=== PATIENT | male | born 1975 | race African-American/Black ===

== ENCOUNTER 2021-08-13 22:18 | Emergency (ER) | payer MEDICARE, MEDICAID ==
[~2021-08-13] VITALS: Ht 185.4 cm; Wt 90.0 kg
[2021-08-13 22:28] VITALS: BP 133/71
[2021-08-13] MEDS ORDERED: ACETAMINOPHEN 325MG TABLET PO ONE (22:45)
[2021-08-14] MEDS ORDERED: IBUP-2029 MT (00:39)
[2021-08-14] MEDS ORDERED: BACL-141 MT (00:39)
== END 2021-08-14 01:52 | disposition home or self-care (01) ==
LOC: ER 22:18
DX: M79.602 Pain in left arm (principal); I10 Essential (primary) hypertension; F32.A Depression, unspecified; F20.9 Schizophrenia, unspecified; F10.21 Alcohol dependence, in remission; F17.210 Nicotine dependence, cigarettes, uncomplicated
CPT/HCPCS: 36415; 73060; 84484; 93005; 93971; 99284